=== PATIENT | female | born 1990 | race Caucasian/White ===

== ENCOUNTER 2018-10-07 18:07 | Emergency (ER) | payer SELFPAY ==
[~2018-10-07] VITALS: Ht 167.6 cm; Wt 52.3 kg
[2018-10-07 18:09] VITALS: Ht 167.6 cm; Wt 52.3 kg
[2018-10-07 19:14] LABS: BASOPHILS 0.1 % (0-2); EOSINOPHILS 0.1 % (0-7); HEMATOCRIT 40.3 % (36.0-48.0); HEMOGLOBIN 13.3 g/dL (12-16); IMMATURE GRANULOCYTES 0.1 % (0-5); LYMPHOCYTES 11.1 % (15-50); MEAN PLATELET VOLUME 10.4 fL (7.4-10.4); MONOCYTES 6.6 % (2-11); PLATELET COUNT 207 10x3/uL (130-400); RBC 4.58 10x6/uL (4.00-5.40); RDW 13.5 % (11.5-14.5); WBC 9.7 10x3/uL (4.8-10.8)
[2018-10-07 19:28] LABS: ALBUMIN 3.7 g/dL (3.4-5.0); ALKALINE PHOSPHATASE 88 U/L (46-116); ALT (SGPT) 20 U/L (10-68); BILIRUBIN - TOTAL 0.73 mg/dL (0.2-1.3); CALC OSMOLALITY 273 mosm/kg (275-300); CALCIUM 8.9 mg/dL (8.5-10.1); CARBON DIOXIDE 24.4 mmol/L (21.0-32.0); CHLORIDE - SERUM 101 mmol/L (98-107); CREATININE - SERUM 0.8 mg/dL (0.6-1.3); GLUCOSE 86 mg/dL (74-106); POTASSIUM - SERUM 3.7 mmol/L (3.5-5.1); PROTEIN - SERUM 8.9 g/dL (6.4-8.2); SODIUM 137 mmol/L (136-145); UREA NITROGEN 16 mg/dL (7-18); eGFR NON AFRICAN AMERICAN > 90 mL/min (90-120)
[2018-10-07 19:39] LABS: CREATINE KINASE 38 UL (21-215)
[2018-10-07] MEDS ORDERED: EC-NAPROSYN500 MG PO (20:17)
[2018-10-07] MEDS ORDERED: ZPAK PO (20:17)
[2018-10-07] MEDS ORDERED: TESSALON PERLE100 MG PO (20:17)
[2018-10-07] MEDS ORDERED: ALBUTEROL SULF8.5 GM INH (20:17)
[2018-10-07 21:22] VITALS: BP 106/52
== END 2018-10-07 21:22 | disposition home or self-care (01) ==
LOC: D.ER 18:07
PROVIDERS: Emergency Medicine
DX: J18.9 Pneumonia, unspecified organism (principal); S29.011A Strain of muscle and tendon of front wall of thorax, initial encounter; X58.XXXA Exposure to other specified factors, initial encounter; Y93.89 Activity, other specified; Y92.019 Unspecified place in single-family (private) house as the place of occurrence of the external cause; F17.200 Nicotine dependence, unspecified, uncomplicated